=== PATIENT | male | born 1955 | race Caucasian/White ===

== ENCOUNTER 2019-06-26 10:39 | Emergency (ER) | payer MEDICARE, SELFPAY ==
[2019-06-26 10:45] VITALS: BP 137/97; PULSE 94; RESP 18; TEMP 36.4; O2SAT 96
--- NOTE | 2019-06-26 10:54 | W.ED.GENAD ---
Discharge Plan Disposition Patient Disposition: HOME Condition: Stable Discharge Details Chief Complaint: DentalOral Clinical Impression: Dental infection, Dental caries Primary Care Provider: Gabriel Hardwick ED Provider: Stacia Landaverde Home Meds and New Rx's Prescriptions: New penicillin V potassium 500 mg tablet 500 mg PO QID 7 Days Qty: 28 RF: 0 Continued Balanced B Complex-Vit C 1 EACH tablet extended release 1 ea PO DAILY RF: 0 folic acid 1 MG tablet 1 mg PO QAM Qty: 30 RF: 0 cholecalciferol (vitamin D3) 1,000 UNITS tablet 1,000 units PO DAILY Qty: 30 RF: 0 fluoxetine 10 MG tablet 10 mg PO QAM Qty: 90 RF: 0 Discharge Instructions Instructions: Dental Caries (ED) Additional Instructions: Drink plenty of fluids and get plenty of rest. Take the antibiotics until finished. Alternate Tylenol and Motrin as needed and directed for pain. Call a dentist to schedule a follow-up appointment for reevaluation. Return to the emergency department if you develop any worsening or concerning symptoms such as fever, difficulty swallowing or breathing. Discharge Data Discharge Physician: Stacia Landaverde Medical Decision Making 63-year-old male with a history of depression and alcohol abuse presents with right upper dental pain and right-sided facial swelling since last night. Has history of poor dentition and admits to frequent dental infections. No recent antibiotics. Afebrile. Patient appears nontoxic. Speaking in full sentences. No drooling, trismus, submandibular swelling or evidence of peritonsillar abscess. He has multiple missing teeth and poor dentition throughout. There is the base root of the teeth remaining in multiple areas of missing teeth. There is edema and erythema with tenderness palpation of the right upper frontal and lateral teeth. No obvious abscess noted. There is no active bleeding. We will send with prescription for penicillin. Patient advised to alternate Tylenol and Motrin. He was given a list of dentists for follow-up as he will need evaluation and likely multiple dental extractions. He is advised to return here with any worsening or new concerning symptoms. Medical Records Medical records reviewed: Yes I reviewed the patient's medical records. HPI General Mode of arrival: ambulatory. Date/Time Provider Initiated Documentation: 06/26/19 10:52. Limitations to Documentation: no limitations. Information obtained by: patient. HPI Narrative: Pt is a 63yo male with a history of alcohol abuse and depression presents with right-sided facial swelling and pain in his right upper jaw/teeth since yesterday. Patient states he has poor dentition with multiple missing teeth throughout and states he has had infections in his and his teeth many times before. He denies any recent antibiotics. He denies fever, difficulty swallowing, difficulty breathing, nausea or vomiting. Related Data Home Medications Medication Instructions Recorded Confirmed Balanced B Complex-Vit C 1 ea PO DAILY 04/14/16 06/26/19 cholecalciferol (vitamin D3) 1,000 units PO DAILY #30 tab 05/02/16 07/17/16 folic acid 1 mg PO QAM #30 tab 05/02/16 07/17/16 fluoxetine 10 mg PO QAM #90 tab 07/27/16 penicillin V potassium 500 mg PO QID 7 Days #28 tab 06/26/19 Previous Rx's Medication Instructions Recorded cholecalciferol (vitamin D3) 1,000 units PO DAILY #30 tab 05/02/16 folic acid 1 mg PO QAM #30 tab 05/02/16 fluoxetine 10 mg PO QAM #90 tab 07/27/16 penicillin V potassium 500 mg PO QID 7 Days #28 tab 06/26/19 Allergies Allergy/AdvReac Type Severity Reaction Status Date / Time No Known Allergies Allergy Unverified 06/26/19 10:54 General Stated Complaint: Headache WAYLON: 4 Review of Systems All systems reviewed & are unremarkable except as noted in HPI and below Constitutional Constitutional: Reports as per HPI, Denies chills and Denies fever(s) Eyes Eyes: Denies blurry vision ENT Ears, Nose, Mouth, and Throat: Reports dental pain, Denies dizziness, Denies sore throat and Denies throat swelling Cardiovascular Cardiovascular: Denies chest pain and Denies dyspnea Respiratory Respiratory: Denies cough and Denies dyspnea Gastrointestinal Gastrointestinal: Denies abdominal pain, Denies diarrhea and Denies vomiting Genitourinary Genitourinary: Denies hematuria and Denies dysuria Musculoskeletal Musculoskeletal: Denies back pain and Denies numbness Integumentary/Breasts Skin/Breast: Denies lesions and Denies rash Neurologic Neurologic: Denies dizziness, Denies focal weakness and Denies numbness Allergic/Immunologic Allergic/Immunologic: Denies throat swelling [facility] Medical History Alcohol abuse (Inactive) Depression (Chronic) Poor dentition (Inactive) Wernicke-Korsakoff psychosis (Inactive) Surgical History History of elbow surgery (Acute) History of hip replacement (Chronic) Social History Smoking/Tobacco Use Status: Former Tobacco Use Quit Date: 06/13/19 Alcohol Intake: current Alcohol Intake frequency: holidays/special occasions only Alcohol type: beer Drug use: Never Substance use type: does not use Do you feel safe at home: Yes Do you feel safe in your relationship?: Yes Exam Const General: cooperative, healthy appearing and no acute distress HENMT Head: normal to inspection Ears: hearing grossly normal bilaterally, external ears normal and TM's normal bilaterally General nose exam: external nose normal Face images: 1. Mild to moderate right-sided facial swelling. There is no erythema, lesions, rash, evidence of trauma or open wounds. Mouth: oral mucosae normal Teeth and gingiva: poor dentition (Throughout) and other (Multiple missing teeth. Edema/erythema noted to R upper jaw w/o abscess) Throat: posterior oropharynx normal and other Eyes General: appearance normal, both eyes and all related structures Neck Neck: normal visual inspection, no lymphadenopathy, no meningeal signs, trachea midline, supple and No submandibular swelling Resp Effort & Inspection: normal respiratory effort and able to speak in complete sentences Cardio Rate: regular rate Skin General skin exam: no rashes or lesions noted Neuro General: alert, awake and oriented x3 Motor: muscle tone normal throughout Extrem General: normal to inspection and full ROM Psych Appearance: grossly normal Affect: normal affect Course Vital Signs Vital signs: Vital Signs Temperature 97.5 F L 06/26/19 10:45 Pulse 94 H 06/26/19 10:45 Respiratory Rate 18 06/26/19 10:45 Blood Pressure 137/97 H 06/26/19 10:45 Pulse Oximetry 96 06/26/19 10:45 Temperature 97.5 F L 06/26/19 10:45 Temperature Source Temporal Artery Scan 06/26/19 10:45 Pulse 94 H 06/26/19 10:45 Respiratory Rate 18 06/26/19 10:45 Respiratory Effort Non-Labored 06/26/19 10:49 Blood Pressure 137/97 H 06/26/19 10:45 Blood Pressure Position Sitting 06/26/19 10:45 Pulse Oximetry 96 06/26/19 10:45 Oxygen Delivery Method Room Air 06/26/19 10:45 Oxygen Flow Rate 0 06/26/19 10:45 Pain Level 3 06/26/19 10:49
[2019-06-26 11:23] VITALS: BP 137/97; PULSE 94; RESP 18; TEMP 36.4; O2SAT 96
== END 2019-06-26 11:22 | disposition home or self-care (01) ==
PROVIDERS: Emergency Provider Physician Assistant; PCP Family Medicine
DX: K04.7 Periapical abscess without sinus (principal); K02.9 Dental caries, unspecified
CPT/HCPCS: 99283

== ENCOUNTER 2021-02-21 12:19 | Outpatient (REF) | payer MEDICARE, SELFPAY ==
[2021-02-22 17:36] LABS: COVID-19 RT-PCR UVMMC Result Negative (Negative)
== END 2021-02-21 12:20 | disposition home or self-care (01) ==
LOC: LBN 12:19
PROVIDERS: PCP Family Medicine; Visit Provider Nurse Practitioner Family
DX: Z20.822 Contact with and (suspected) exposure to COVID-19 (principal); J06.9 Acute upper respiratory infection, unspecified
CPT/HCPCS: U0003; U0005

== ENCOUNTER 2024-04-05 18:08 | Emergency (ER) | payer MEDICARE, SELFPAY ==
[2024-04-05] VITALS (21 sets, daily range): BP systolic 60–149; BP diastolic 46–113; PULSE 74–143; RESP 2–91; TEMP 34.4–34.5; O2SAT 90–95
[2024-04-05] MEDS: EPINEPHrine 1 MG/ML AMP pres-free ×7 (18:16→19:16)
[2024-04-05] MEDS: Tenecteplase 50 MG KIT 45 MG IVP (18:21)
[2024-04-05] MEDS: Propofol 200 MG/20 ML VIAL ×2 (18:22→18:28)
[2024-04-05 18:27] LABS: Abs Immature Grans 0.16 10^3/uL (0.0-0.06); Absolute Basophil Count 0.06 10^3/uL (0.0-0.2); Absolute Eosinophil Count 0.08 10^3/uL (0.0-0.7); Absolute Lymphocyte Count 1.68 10^3/uL (1.2-3.4); Absolute Monocyte Count 1.12 10^3/uL (0.1-0.8); Absolute Neutrophil Count 12.04 10^3/uL (1.2-6.7); Basophils % 0.4 %; Eosinophils % 0.5 %; HCT 50.6 % (40.0-50.0); HGB 17.3 g/dL (13.5-17.5); Immature Grans % 1.1 %; Lymphocytes % 11.1 %; MCH 33.3 pg (27.0-33.0); MCHC 34.2 % (32.0-36.0); MCV 97 fL (80-95); MPV 9.6 fL (8.0-11.0); Monocytes % 7.4 %; Neutrophils % 79.5 %; Platelet Count 312 10^3/uL (130-400); RDW 12.7 % (11.8-14.1); RDW-SD 46.2 fL; WBC 15.14 10^3/uL (4.4-10.8)
--- NOTE | 2024-04-05 18:29 | W.ED.GENAD ---
Discharge Plan Disposition Patient Disposition: Discharge Details Chief Complaint: Chest Pain Clinical Impression: ST elevation (STEMI) myocardial infarction, Cardiac arrest Primary Care Provider: Gabriel Hardwick ED Provider: Trey Guthrie Home Meds and New Rx's Prescriptions: No Action Balanced B Complex-Vit C 1 EACH tablet extended release 1 ea PO DAILY folic acid 1 MG tablet 1 mg PO QAM Qty: 30 0RF Patient Comments: daughter of pt states that he has not taken in a while 07/09/16 cholecalciferol (vitamin D3) 1,000 UNITS tablet 1,000 units PO DAILY Qty: 30 0RF fluoxetine 10 MG tablet 10 mg PO QAM Qty: 90 0RF HPI General Mode of arrival: EMS. Date/Time Provider Initiated Documentation: 04/05/24 18:11. Limitations to Documentation: no limitations. Information obtained by: patient. History of Present Illness 68 year old M presents to the emergency department with the chief complaint of chest pain, described as severe, and is localized to the chest. Patient reports no radiation. and it has been constant. No relieving factors improve symptom(s), No exacerbating factors reported . Patient notes chest pain; denies fever/chills and shortness of breath. Patient did receive the following treatments prior to arrival, none Related Data Home Medications ?Medication ?Instructions ?Recorded ?Confirmed vitamin B comp and C no.3 15 mg-10 1 ea PO DAILY 04/14/16 06/26/19 mg-50 mg-5 mg-300 mg tablet,ext.release (Balanced B Complex-Vit C) cholecalciferol (vitamin D3) 25 1,000 units PO DAILY ##30 05/02/16 07/17/16 mcg (1,000 unit) tablet folic acid 1 mg tablet 1 mg PO QAM ##30 05/02/16 07/17/16 fluoxetine 10 mg tablet 10 mg PO QAM ##90 07/27/16 Previous Rx's ?Medication ?Instructions ?Recorded cholecalciferol (vitamin D3) 25 1,000 units PO DAILY ##30 05/02/16 mcg (1,000 unit) tablet folic acid 1 mg tablet 1 mg PO QAM ##30 05/02/16 fluoxetine 10 mg tablet 10 mg PO QAM ##90 07/27/16 Allergies Allergy/AdvReac Type Severity Reaction Status Date / Time No Known Allergies Allergy Unverified 06/26/19 10:54 General Stated Complaint: Chest Pain WAYLON: 2 Review of Systems All systems reviewed & are unremarkable except as noted in HPI and below Constitutional Constitutional: Denies chills and Denies fever(s) Cardiovascular Cardiovascular: Reports chest pain and Denies dyspnea Respiratory Respiratory: Denies cough and Denies dyspnea Gastrointestinal Gastrointestinal: Denies abdominal pain, Denies nausea and Denies vomiting Genitourinary Genitourinary: Denies dysuria Integumentary/Breasts Skin/Breast: Denies rash Allergic/Immunologic Allergic/Immunologic: Denies urticaria Exam Const Orientation: alert [facility] Head: normal to inspection Ears: external ears normal General nose exam: external nose normal Mouth: moist mucous membranes Eyes General: appearance normal, both eyes and all related structures Neck Neck: normal visual inspection Resp Effort & Inspection: normal respiratory effort and able to speak in complete sentences Auscultation: clear to auscultation bilaterally Cardio Jugular venous pressure: no JVD Rate: regular rate Heart Sounds: no murmurs GI Palpation: soft and nontender Skin General skin exam: no rashes or lesions noted Neuro General: patient alert and patient oriented x3 Extrem General: normal to inspection Psych Mental Status: mental status grossly normal Course Vital Signs Vital signs: Vital Signs Pulse 88 04/05/24 18:09 Respiratory Rate 14 04/05/24 18:09 Blood Pressure 64/46 L 04/05/24 18:09 Pulse Oximetry 90 L 04/05/24 18:09 Pulse 88 04/05/24 18:09 Respiratory Rate 14 04/05/24 18:09 Blood Pressure 64/46 L 04/05/24 18:09 Pulse Oximetry 90 L 04/05/24 18:09 Oxygen Delivery Method Room Air 04/05/24 18:09 Oxygen Flow Rate 0 04/05/24 18:09 Medical Decision Making 5-year-old male with no prior cardiac history comes in for chest pain. He apparently was feeling well all day and then started having acute severe chest pain so he called EMS who noted a STEMI in the field. On arrival he was hypotensive in the 60s but had a normal mental status. Was able to answer questions appropriately. He says that he has never had chest pain like this before describes as severe chest pressure. He is noted to have a STEMI on arrival with elevation in V1 V2 and V3 as well as V4. He has clear lungs no focal deficits. Given his hypotension suspect cardiogenic shock will proceed with labs, he got aspirin and 324 with EMS so we will give Plavix and heparin, I did discuss with him and he has medical decision-making capacity and consents to lytics. 45 mg of TNK ordered. Approximately 2 minutes after initial assessment after I started putting orders in patient went into cardiac arrest and had CPR done which she got 1 mg of epinephrine and was shocked 1 time for ventricular fibrillation with return of spontaneous circulation. Approximate downtime was approximately 2 minutes. He was intubated using a glide scope without complication. He is remaining on the nor epi drip for blood pressure maintenance, propofol infusion for sedation. Awaiting callback from [facility] Despite being on epi drip patient again had a cardiac arrest in which he had 4 minutes of CPR done and had PEA and after a total of 2 mg of IV epinephrine he had ROSC again. IV epi drip ordered in addition to the nor epi drip he's already on. [place] [facility] [place] after this [place] call pt again went into cardiac arrest. Amio was ordered for vtach prior to this and mag as well. CPR was done with family, patient's brother, at bedside. Patient has 2 other sisters and estranged son but otherwise no family. Her brother says that the patient would not want to have significant interventions done and was hesitant to even call the ambulance. Discussed grim prognosis for the patient given he had multiple cardiac arrests here despite getting lysed and being on pressors. Patient would not want to be on ventilator as per the brother after discussion with him and given risk of no neurological recovery or being in a permanent disabled state the brother said that the patient would not want this and the decision was made to cease CPR. He was pronounced at 7:40 PM. Differential Diagnosis Differential Diagnosis: STEMI, ACS Lab Data Lab results reviewed: Yes I reviewed the patient's lab results. ECG Data Attestation: I personally reviewed and interpreted this ECG (s) as follows: Prior ECG tracings: not available for review Interpretation: sinus bradycardia, rate of 59, pr 170, anterior stemi Quality:SDOH Health Related Social Needs: No Data to Display PFSH All Active Problems (Updated 04/05/24 @ 19:48 by Trey Guthrie MD) Cardiac arrest (Acute) ST elevation (STEMI) myocardial infarction (Acute) Loose body in left elbow (Acute) Postoperative anemia (Acute) Left acetabular fracture (Acute) Mental status change (Acute) Hepatic encephalopathy (Acute) Discharge planning issues (Acute) Alcohol withdrawal delirium (Acute) Medical History Depression Poor dentition Wernicke-Korsakoff psychosis Alcohol abuse Surgical History History of elbow surgery History of hip replacement Social History Smoking/Tobacco Use Status: Former Tobacco Use Quit Date: 06/13/19 Smoking risk assessment performed?: Yes Alcohol Intake: current Alcohol Intake frequency: holidays/special occasions only Alcohol type: beer Drug use: Never Substance use type: does not use Do you feel safe at home: Yes Do you feel safe in your relationship?: Yes
[2024-04-05] MEDS: Norepinephrine in D5W 8 MG/250 ML BAG 13.125 MG IV (18:30)
[2024-04-05] MEDS: PROPOFOL 1,000 MG/100 ML BTL 2.511 MG IV (18:30)
--- NOTE | 2024-04-05 18:30 | RT.EKG_ITS ---
APPROVED REPORT Exam: Resting ECG Reason for Exam: chest pain Patient Location: E HR:59 bpm ECG Measurements Heart Rate 59 AXIS NH 170 P 81 QRSd 180 QRS 33 QT 545 T 18 QTc 555 Conclusion Sinus rhythm...normal P axis, V-rate 60- 99 Ventricular premature complex...V complex w/ short R-R interval Right bundle branch block...QRSd>120, terminal axis(90,270) Inferior infarct, old...Q >35mS, II III aVF Anterolateral infarct, acute...ST >0.20mV, V2-V6,I,aVL
[2024-04-05 18:41] LABS: INR 1.1 (0.9-1.1); PTT Activated 25.4 sec (23.6-32.8)
[2024-04-05 18:58] LABS: ALT 21 U/L (16-63); AST 20 U/L (15-37); Albumin 3.6 g/dL (3.4-5.0); Alkaline Phosphatase 55 U/L (46-116); Anion Gap 11.4 mmol/L (3-11); BUN 8 mg/dL (7-18); Bilirubin, Total 0.43 mg/dL (0.2-1.0); CO2 23.6 mmol/L (21.0-32.0); CREATININE 1.2 mg/dL (0.70-1.30); Calcium 8.9 mg/dL (8.5-10.1); Chloride 98 mmol/L (98-107); Estimated GFR 65.06 (mL/min/1.73m2); Glucose 124 mg/dL (74-106); Potassium 3.7 mmol/L (3.5-5.1); Sodium 133 mmol/L (136-145); TSH (W/Ref FT4) 4.14 uIU/mL (0.36-3.74); Total Protein 7.5 g/dL (6.4-8.2)
[2024-04-05 19:03] LABS: Troponin I 67 ng/L (< or =60)
[2024-04-05] MEDS: Ketamine 50 MG/5 ML SYRINGE (19:11)
[2024-04-05] MEDS: Ketamine 500 MG/10 ML VIAL 80 MG IVP (19:11)
[2024-04-05 19:23] LABS: FREE T4 1.37 ng/dL (0.76-1.46)
--- NOTE | 2024-04-05 19:24 | DI.RAD_ITS ---
Exam(s) XR PORTABLE CHEST AP EXAM: XR PORTABLE CHEST AP CLINICAL HISTORY: chest pain TECHNIQUE: 2D digital imaging was performed. COMPARISON: CT CHEST ABD PELVIS WITH CONTRAST from 04/14/2016 FINDINGS: Exam is somewhat limited by multiple overlying monitoring leads. An endotracheal tube has been inserted which lies at the level of the upper border of the aorta. A n asogastric tube projects in the fundus of the stomach. LUNGS: Diffusely abnormally increased bilateral pulmonary infiltrates which could indicate pneumoniti s versus pulmonary edema. No pleural effusion is seen. There is a small right apical pneumothorax. HEART: Normal size. AORTA: Normal diameter. BONES: No rib fractures are visible. Of the spine is mostly obscured. Soft tissues: Unremarkable. IMPRESSION: Small right apical pneumothorax. Bilateral pulmonary infiltrates versus pulmonary edema. DATA REPOSITORY: RADIATION DOSE DELIVERED:
[2024-04-05] MEDS: fentaNYL 100 MCG/2 ML VIAL (19:27)
--- NOTE | 2024-04-05 20:00 | DI.VRAD_ITS ---
Addendum created by Norma Valencia MD on 04/05/2024 8:42:59 PM EDT: I discussed case findings with Trey Guthrie 04/05/2024 8:42 PM EDT. Initial report created on 04/05/2024 7:59:33 PM EDT: PROCEDURE INFORMATION: Exam: XR Chest Exam date and time: 04/05/2024 7:16 PM Age: 68 years old Clinical indication: Other: Chest pain TECHNIQUE: Imaging protocol: Radiologic exam of the chest. Views: 1 view. Other technique: Portable exam. COMPARISON: No relevant prior studies available. FINDINGS: Tubes, catheters and devices: Nasogastric tube in place. Endotracheal tube in place with the tip at the T5 level. Lungs: See Pleural spaces finding. Pleural spaces: Two images are provided. The 1st image shows an extremely small right apical pneumothorax. The 2nd image shows a better delineated small right upper lobe pneumothorax. There is moderate, diffuse consolidation in the right lung. There may be some very minimal increased vascularity or early airspace disease in the left mid lung and perihilar level. Heart/Mediastinum: Cardiomegaly. Bones/joints: Unremarkable. Soft tissues: There is some overlying pad artifact. IMPRESSION: 1. Small right apical pneumothorax. 2. Moderate right lung consolidation with possible early left consolidation. Dictated and Authenticated by: Norma Valencia MD. Ordering:KATY Yang MD
--- NOTE | 2024-04-07 07:52 | NUR.NOTE ---
Access chart to reconcile EKG orders to EKG's in [facility]. Nursing Note:
== END 2024-04-05 19:41 | disposition expired ==
PROVIDERS: Emergency Provider Emergency Medicine; PCP Family Medicine
DX: I46.9 Cardiac arrest, cause unspecified (principal); I21.4 Non-ST elevation (NSTEMI) myocardial infarction
CPT/HCPCS: 31500; 36415; 80053; 92950; 93005; 96374; 96375; 99291; 99292; 71045; 83735; 84439; 84443; 84484; 85025; 85610; 85730; 93010; J0171; J2704; J3010; J3101